=== PATIENT | female | born 1980 | race Caucasian/White ===

== ENCOUNTER 2020-05-05 14:32 | Outpatient (CLI) | payer BC, SELFPAY ==
--- NOTE | ~2020-05-05 | CT_ITS ---
EXAMINATION: CT abdomen pelvis wo con DATE: 05/05/2020 14:58 INDICATION: Hematuria. TECHNIQUE: Computed tomography (CT) of the abdomen and pelvis was performed without intravenous contr ast. Automated exposure control and iterative reconstruction technique were employed. The dose-length product was 196.53 mGy-cm. COMPARISON: None. FINDINGS: The visualized portions of the lung bases are clear without pneumonia or pleural effusion. The heart size is normal. No pericardial effusion. The liver, gallbladder, spleen, pancreas, adrenal glands, and kidneys are normal. There is a 4 mm stone at right ureterovesicular junction. There are n o dilated loops of bowel. The appendix is normal. There are no pathologically enlarged lymph nodes. T here is no free intraperitoneal fluid. There is mild lumbar spondylosis. IMPRESSION: 1. 4 mm stone at right ureterovesicular junction. No hydronephrosis. Reviewed, dictated and finalized at location A.
[2020-05-05 15:55] LABS: Basophils Percent Auto 0.3 % (0.2-1.2); Eosinophils Absolute Auto 0.4 K/mm3 (0-0.3); Eosinophils Percent Auto 4.4 % (0-4.4); Hematocrit 38.5 % (37.0-47.0); Hemoglobin 12.6 g/dL (12.0-15.0); Immature Granulocyte Absolute 0.02 K/mm3 (0.00-0.031); Immature Granulocyte Percent A 0.2 % (0-0.5); Lymphocytes Absolute Auto 2.91 K/mm3 (0.9-3.2); Lymphocytes Percent Auto 33.8 % (18.3-44.2); Mean Corpuscular HGB Conc 32.7 g/dl (32-36); Mean Corpuscular Volume 82.6 fl (80-100); Mean Platelet Volume 11.1 fl (7.4-10.4); Monocytes Absolute Auto 0.6 K/mm3 (0.1-0.6); Monocytes Percent Auto 6.6 % (2.6-8.5); Neutrophils Absolute Auto 4.7 K/mm3 (1.3-6.7); Neutrophils Percent Auto 54.7 % (45.5-73.1); Platelet Count Result 195 k/mm3 (150-375); Red Blood Count 4.66 M/mm3 (4.2-5.4); Red Cell Distribution Width 12.7 % (11.5-14.5); White Blood Count 8.6 K/mm3 (4.5-10.0)
[2020-05-05 16:09] LABS: Alanine Aminotransferase 17 U/L (4-35); Albumin Level 4.3 g/dL (3.5-5.1); Alkaline Phosphatase 74 U/L (38-126); Anion Gap 11.2 mmol/L (7-16); Aspartate Amino Transferase 23 U/L (14-36); Bilirubin,Total 0.2 mg/dL (0.2-1.3); Blood Urea Nitrogen 13 mg/dL (7-17); Carbon Dioxide 26 mmol/L (22-30); Chloride 105 mmol/L (98-107); Estimated Glomerular Filt Rate > 60; Glucose 93 mg/dL (65-105); Potassium 4.2 mmol/L (3.4-5.0); Sodium 138 mmol/L (137-145)
== END 2020-05-05 14:33 | disposition home or self-care (01) ==
PROVIDERS: PCP Family Medicine; Visit Provider Physician Assistant
DX: N20.1 Calculus of ureter (principal)
CPT/HCPCS: 36415; 74176; 80053; 85025

== ENCOUNTER 2023-01-13 14:57 | Outpatient (CLI) | payer OTHER, SELFPAY ==
--- NOTE | 2023-01-13 15:00 | ECG_ITS ---
Measurements Intervals [place] Rate: 74 P: 53 MD: 161 QRS: 16 QRSD: 82 T: 29 QT: 366 QTc: 407 Interpretive Statements SINUS RHYTHM POOR R-WAVE PROGRESSION BORDERLINE ECG NO PREVIOUS ECG AVAILABLE FOR COMPARISON Electronically Signed On 01-13-2023 17:10:10 CDT by Lawson Barrientos M.D.
== END 2023-01-13 14:58 | disposition home or self-care (01) ==
LOC: ANHSURGERY 15:02
PROVIDERS: PCP Family Medicine; Visit Provider Obstetrics & Gynecology Gynecologic Oncology
DX: I10 Essential (primary) hypertension (principal)
CPT/HCPCS: 93005

== ENCOUNTER 2023-01-14 00:40 | Day surgery (SDC) | payer OTHER, SELFPAY ==
[2023-01-10 15:10] VITALS: BMI 33.2
--- NOTE | 2023-01-10 15:14 | PC.NURSE ---
Report to the Outpatient Waiting Room, entrance under the green pavilion located off [facility], at time 6:00 on date 01/14/23. Planned Procedure Time: 8:00. Time changes happen often and if your time is changed the preop area will call you the afternoon before. - You and your visitor will be asked to self-screen and do not enter if you have any COVID symptoms. - A mask is optional within the hospital at this time. Patients may have clear liquids (water, carbonated beverages, clear teas, apple juice) until 3 hours prior to surgery (5:00) with a maximum of 20 ounces. - No food from midnight until time of surgery Take the following medications with a SIP of water the morning of surgery: METOPROLOL, TOPIRAMATE DO NOT STOP ANY OF YOUR OTHER PRESCRIPTION MEDICATIONS PRIOR TO SURGERY ?EXCEPT THE FOLLOWING Medications to discontinue per physician: N/A Date to take last dose: N/A Please no make-up, nail estonian, hairspray, perfume, deodorant, or body powder the day of surgery. No jewelry (including any body piercings) or valuables the day of surgery, leave them at home. Please take a shower or bath the night before, or the morning of, surgery with an antibacterial soap. Wear comfortable, loose fitting clothing. - Jewelry must be removed prior to entering the operating room. Rings and piercings that are not removed may be cut off. - The hospital will not accept responsibility for valuables. - Please leave all valuables, including medications, at home the day of surgery. If you are going home after surgery, a licensed automobile drivers must drive you home. - NO public transportation without another adult if you receive anesthesia. - We recommend that an adult stay with you for 24 hours following discharge. - We also recommend that you do not drive, make important decision, drink alcoholic beverages, or take any drugs that were not prescribed by your health care provider for at least 24 hours after your discharge time. Follow any additional instructions given to you from your surgeon. If you or anyone in your household have experienced Covid symptoms in the past week, please notify your surgeon or the nurse liaison at the phone number below for possible testing. Telephone instructions given to PT - JOSE EPPS and asked if any additional questions and then verbalized understanding. Patient advised to call surgeon office or pre surgery nurse liaison [phone] if any additional questions.
--- NOTE | 2023-01-13 11:40 | WPDANESEPPF ---
Anes - Initial Pre Proc Eval Procedure: Operation Date: 01/14/23 08:00 Proposed Procedures p Diagnostic Laparoscopy with Bilateral Salpingectomy - Mounika Peraza DO Date/Time: 01/13/23 11:40 Surgeon: Mounika Peraza DO Pre Op Diagnosis: Desires Surgical Sterility Patient Data Age: 42 Gender: F Height: 1.52 m Weight: 77.11 kg Allergies Allergy/AdvReac Type Severity Reaction Status Date / Time amoxicillin Allergy Intermediate Hives Verified 01/14/23 07:12 Home Medications Medication Instructions Recorded Confirmed Type topiramate 50 mg tablet (Topamax) 50 mg PO BID 90 days #180 tabs 12/19/22 01/14/23 Rx metoprolol succinate 50 mg 75 mg PO DAILY 01/10/23 01/14/23 History tablet,extended release 24 hr Patient hx anesthesia problems: none Family hx anesthesia problems: none Results Review: All pre-operative results and documents have been reviewed as part of the pre-operative evaluation. [facility] Past Medical History Medical History (Updated 01/13/23 @ 11:41 by Garrison Sherwood MD) Allergies Anxiety and depression Chronic nonintractable headache Essential hypertension Gastroesophageal reflux disease without esophagitis H/O renal calculi Headache, migraine Hematuria Hypertension Migraine Obesity Pseudotumor cerebri Urinary urgency Surgical History Surgical History Carpal tunnel syndrome 2014 delivery delivered 2006 2013 History of endometrial ablation aug 2020 Hx of LASIK Family History Family History Father Hypertension Testicle cancer Mother Family history of malignant melanoma Social History Social History Smoking status: Never smoker Second hand tobacco smoke exposure: No Alcohol intake: current Drinks per week: 1 Alcohol use details: beer Substance use: never Substance use type: does not use Living arrangements: with family Occupation/Education: occupation Additional occupation/education comments: [employer] Gender identity (if verbalized by the patient): Female Spiritual care concerns: No Agree to blood products: Yes Anes - Eval Final PreProcedure Day of Procedure 01/13/23 11:40 Patient weight: obese Heart: regular rate and rhythm Lungs: clear to auscultation and normal air movement Airway: Mallampati scale class II Neurological: alert and oriented Last oral intake: >/= 8 hours ASA classification: III Emergent: no Anesthetic plan: proceed Anesthesia type and monitoring: general ETT Results Review: All pre-operative results and documents have been reviewed as part of the pre-operative evaluation. Informed Consent: The patient's anesthetic plan and its attendant risks and benefits were discussed with the patient/family/POA. Questions were solicited and answers provided to the satisfaction of the patient/family/POA.
[2023-01-14] VITALS (9 sets, daily range): BP systolic 142–191; BP diastolic 95–120; PULSE 63–83; RESP 12–16; TEMP 36.4; O2SAT 98–100
[2023-01-14] MEDS: ACETAMINOPHEN 500 MG TABLET 1000 MG PO (07:21)
[2023-01-14] MEDS: GABAPENTIN 300 MG CAPSULE PO (07:21)
[2023-01-14] MEDS: LACTATED RINGERS 1,000 ML 30 ML IV CONT (07:29)
--- NOTE | 2023-01-14 07:44 | WPDHPUPDATE1 ---
History and Physical Update Update Date/Time: 01/14/23 07:44 History and Physical has been reviewed, including an updated exam of the patient. There are NO changes in the patient's condition. Risks, benefits, and alternatives have been discussed and questions answered. Patient agrees to proceed with procedure.
--- NOTE | 2023-01-14 07:44 | PM.IMHP ---
H&P: HPI History of Present Illness Date/Time: 01/14/23 07:44 Chief Complaint: I'm here for my surgery Narrative: I'm here for my surgery. patient here desiring permanent sterilization. Review of Systems Review of Systems: All systems reviewed & are unremarkable except as noted in HPI and below PMFSH Past Medical History Medical History (Updated 01/14/23 @ 07:47 by Mounika Peraza DO) Allergies Anxiety and depression Chronic nonintractable headache Essential hypertension Gastroesophageal reflux disease without esophagitis H/O renal calculi Headache, migraine Hematuria Hypertension Migraine Obesity Pseudotumor cerebri Urinary urgency Surgical History Surgical History Carpal tunnel syndrome 2014 delivery delivered 2006 2013 History of endometrial ablation aug 2020 Hx of LASIK Family History Family History Father Hypertension Testicle cancer Mother Family history of malignant melanoma Social History Social History Smoking status: Never smoker Second hand tobacco smoke exposure: No Alcohol intake: current Drinks per week: 1 Alcohol use details: beer Substance use: never Substance use type: does not use Living arrangements: with family Occupation/Education: occupation Additional occupation/education comments: [employer] Gender identity (if verbalized by the patient): Female Spiritual care concerns: No Agree to blood products: Yes Meds Home Medications and Allergies Home Medications Medication Instructions Recorded Confirmed Type topiramate 50 mg tablet (Topamax) 50 mg PO BID 90 days #180 tabs 12/19/22 01/14/23 Rx metoprolol succinate 50 mg 75 mg PO DAILY 01/10/23 01/14/23 History tablet,extended release 24 hr Allergies Allergy/AdvReac Type Severity Reaction Status Date / Time amoxicillin Allergy Intermediate Hives Verified 01/14/23 07:12 Vital Signs Vital Signs - 24 hr 01/14/23 06:24 Temperature 36.4 C L Pulse Rate 70 Respiratory Rate 16 Blood Pressure 142/99 H Pulse Oximetry 99 Oxygen Delivery Room Air Exam Const: General: comfortable and no acute distress Neck: Neck: supple Resp: Effort & Inspection: normal respiratory effort Auscultation: clear to auscultation bilaterally Cardio: Rate: regular rate Rhythm: regular rhythm Skin: General skin exam: normal color and no rashes or lesions noted Neuro: General: gait normal Extrem: General: normal to inspection Psych: Mental Status: mental status grossly normal Assessment and Plan Assessment and plan (1) Sterilization: Code(s): Z30.2 - Encounter for sterilization Status: Acute
--- NOTE | 2023-01-14 07:48 | WPDHPUPDATE1 ---
History and Physical Update Update Date/Time: 01/14/23 07:48 History and Physical has been reviewed, including an updated exam of the patient. There are NO changes in the patient's condition. Risks, benefits, and alternatives have been discussed and questions answered. Patient agrees to proceed with procedure.
[2023-01-14] MEDS: BUPIVACAINE/EPINEPHRINE 0.25% 10 ML VIAL 20 ML INFILTRATE (08:45)
--- NOTE | 2023-01-14 09:16 | P.OP_ITS ---
Procedure Note - Detailed Date of Procedure 01/14/23 Pre-op Diagnosis Desires permanent Sterility Post-op Diagnosis Same Procedure Performed Diagnostic laparoscopy, bilateral salpingectomy Surgeon Mounika Peraaz DO Staff Nurse Lisa Anesthesia General Indications Desires permanent sterilization Findings Normal appearing vulva and vaginal canal. Small cervix. Uterus sounded to 5cm. Internally, the liver bowels and stomach were unremarkable. The pelvic organs were normal in appearance. There were several paratubal cysts on both tubes. There was a moderate amount of omental tissue adhered to the anterior abdominal wall and the patient appeared to have a diastasis recti with a fat containing hernia. Description of Procedure Patient was taken to the operating room where she was placed under general anesthesia. She was prepped and draped in the normal sterile fashion in a dorsal lithotomy position. No preoperative antibiotics were indicated. A speculum was placed in the vagina and the cervix was visualized. The anterior lip was grasped with a single-tooth tenaculum and the uterus was sounded to 5 cm. The cervix was sequentially dilated up to accommodate a Kroner uterine manipulator. Once the manipulator was placed the tenaculum speculum removed, gloves were changed and attention was then turned to the abdomen. The skin above the umbilicus was grasped with 2 penetrating towel clamps and the area was injected with local. A small incision was made and a Veress needle was introduced. The saline water drop test was performed to confirm intraperitoneal placement. CO2 insufflation was started and the abdomen was brought to a filling pressure of 15 mmHg. The Veress needle was then replaced with a 5 mm Optiview trocar which was inserted under direct visualization. Survey of the abdomen revealed no evidence of bowel or vascular injury upon entry. Additional port sites in the right and left lower quadrants were identified, injected and incised. Additional 5 mm trocars were introduced under direct visualization. The patient was then placed in steep Trendelenburg position. Survey of the abdomen revealed the above-mentioned findings. The omental adhesions were then released using the LigaSure and the hernia was surveyed. The edge of the rectus muscle was made hemostatic with cautery. The right tube was then elevated and was cauterized and transected off using the LigaSure. The paratubal cysts were drained in order to allow the tube to pass through the purchasing administrative assistant port. The procedure was repeated in an identical fashion on the left-hand side and this tube was removed as well. Survey of the pedicles revealed good hemostasis. No abnormal lesions or suspicious areas were noted in the pelvis. The instruments and trocars were removed, the CO2 gas was allowed to escape from the abdomen. Additional local anesthetic was injected into the sites. The incisions were closed with 4-0 Monocryl in a subcuticular fashion and covered with skin glue. The patient was taken to the recovery room in stable condition. All instrument and sponge counts were correct at the conclusion of the procedure. Estimated Blood Loss 5 IV Fluids 1,000 Urine Output 150 Pathology Yes Complications No immediate complications Condition Stable Disposition PACU
[2023-01-14] MEDS: fentaNYL CITRATE INJ (*CRX) 100 MCG/2 ML VIAL 25 MCG IV PUSH ×2 (09:26→09:28)
[2023-01-14] MEDS: oxyCODONE HCL (*CRX) 5 MG TAB IR PO (10:11)
[2023-01-14] MEDS: hydrALAZINE HCL 20 MG/ML VIAL 10 MG IV PUSH (10:20)
--- NOTE | 2023-01-14 11:06 | SUR.PHASEII ---
1105: notified Dr. Sherwood of patients Blood pressure results post hydralazine administration. Dr. Sherwood stated that patient is okay to DC home.
== END 2023-01-14 11:20 | disposition home or self-care (01) ==
PROVIDERS: PCP Family Medicine; Visit Provider Obstetrics & Gynecology Gynecologic Oncology
PROC: (CPT 49320; principal; 2023-01-14 08:00)
DX: Z30.2 Encounter for sterilization (principal); N83.8 Other noninflammatory disorders of ovary, fallopian tube and broad ligament; I10 Essential (primary) hypertension; E66.9 Obesity, unspecified; Z68.32 Body mass index [BMI] 32.0-32.9, adult
CPT/HCPCS: 58661; 88302; 93005; A9270; J0330; J0360; J1100; J2250; J2405; J2704; J3010; J7030; J7120

== ENCOUNTER 2023-08-22 11:06 | Emergency (ER) | payer OTHER, SELFPAY ==
[2023-08-22 11:15] VITALS: BP 185/115; PULSE 70; RESP 18; TEMP 36; O2SAT 100
--- NOTE | 2023-08-22 11:16 | ED.CHESTPAIN ---
HPI - Chest Pain General Chief Complaint: Chest Pain Stated Complaint: High Blood Pressure and Chest Pain Time Seen by Provider: 08/22/23 11:16 Source: patient Mode of arrival: ambulatory Limitations: no limitations History of Present Illness HPI narrative: 43-year-old female with history hypertension presents complaint chest tightness radiating from back to front of chest, left-sided chest pain with deep breaths, shortness of breath with exertion starting last night. Patient reports she has had headaches, fatigue and overall not feeling well all week. Denies URI symptoms. Saw her primary care physician approximately 1 month ago and blood pressure was elevated. Was told to buy a blood pressure machine and check at. States past month blood pressure has been slowly elevating. Called her primary for an appointment and is not able to see her until mid September. Denies nausea vomiting. Ambulatory with steady gait. Denies lightheadedness. BP this AM at home 197/115. States last night machine said irregular heart beat . All Systems reviewed and negative except as noted above. Related Data Allergies Allergy/AdvReac Type Severity Reaction Status Date / Time amoxicillin AdvReac Mild Hives Verified 08/22/23 11:14 Review of Systems Review of Systems: CONSTITUTIONAL: Denies fever, chills, or sweats. reports fatigue. EYES: Denies visual changes, redness, or discharge. ENT: Denies rhinorrhea, congestion, sore throat, or otalgia. CARDIOVASCULAR: reports chest pain. Denies palpitations, or edema. RESPIRATORY: Denies cough . Reports dyspnea with exertion. GASTROINTESTINAL: Denies abdominal pain, nausea, vomiting, or diarrhea. GENITOURINARY: Denies dysuria or hematuria. SKIN: Denies rash or itching. MUSCULOSKELETAL: Denies back pain, joint pain, or myalgia. NEUROLOGIC: Reports headache. Denies numbness, or weakness. PSYCHIATRIC: Denies anxiety or depression. All other systems reviewed are negative, except as documented in HPI. [facility] Past Medical History Medical History ) Allergies Anxiety and depression Chronic nonintractable headache Essential hypertension Gastroesophageal reflux disease without esophagitis H/O renal calculi Headache, migraine Hematuria Hypertension Migraine Obesity Pseudotumor cerebri Urinary urgency Surgical History Surgical History ) Carpal tunnel syndrome 2014 delivery delivered 2006 2013 History of endometrial ablation aug 2020 Hx of bilateral salpingectomy (01/14/23) Hx of LASIK Family History Family History ) Father Hypertension Testicle cancer Mother Family history of malignant melanoma Social History Social History ) Smoking status: Never smoker Second hand tobacco smoke exposure: No Alcohol intake: current Drinks per week: 1 Alcohol use details: beer Substance use: never Substance use type: does not use Living arrangements: with family Occupation/Education: occupation Additional occupation/education comments: [employer] Gender identity (if verbalized by the patient): Female Spiritual care concerns: No Agree to blood products: Yes Comments At time of signature, agree with nursing past medical, surgical, social and family history. There is no relevant family history pertinent to the presenting complaint. Exam Narrative: GENERAL: This is a well-nourished, well-developed patient, in no apparent distress. HEAD: normocephalic, atraumatic. EYES: PERRL. Sclera clear/white. Vision is grossly intact. EARS: External ears normal NOSE: External nose normal NECK: Neck supple, non-tender without lymphadenopathy, masses or thyromegaly. CARDIOVASCULAR: Regular rate and rhythm without murmurs, gallops, or rubs. RESPIRAT
--- NOTE | 2023-08-22 11:17 | ECG_ITS ---
Measurements Intervals [place] Rate: 70 P: 62 NV: 160 QRS: 28 QRSD: 85 T: 26 QT: 370 QTc: 401 Interpretive Statements SINUS RHYTHM DELAYED PRECORDIAL R/S TRANSITION CONSIDER INFERIOR INFARCT, AGE INDETERMINATE BASELINE ARTIFACT- I, II, III, AVR, AVL, AVF, V4-V6 ABNORMAL ECG COMPARED TO ECG 01/13/2023 15:16:19 NO SIGNIFICANT CHANGES Electronically Signed On 08-22-2023 11:42:57 RENT AND MISCELLANEOUS REMITTANCE CLERK by Joel Hernandez D.O.
== END 2023-08-22 11:46 | disposition short-term general hospital (02) ==
PROVIDERS: Emergency Provider Nurse Practitioner Family; PCP Family Medicine
DX: I10 Essential (primary) hypertension (principal); R07.9 Chest pain, unspecified; R94.31 Abnormal electrocardiogram [ECG] [EKG]; Z20.822 Contact with and (suspected) exposure to COVID-19; K21.9 Gastro-esophageal reflux disease without esophagitis; E66.9 Obesity, unspecified; Z68.34 Body mass index [BMI] 34.0-34.9, adult
CPT/HCPCS: 87426; 93005; 99213; C9803; G0463

== ENCOUNTER 2023-08-22 12:01 | Emergency (ER) | payer OTHER, SELFPAY ==
[2023-08-22] VITALS (9 sets, daily range): BP systolic 141–186; BP diastolic 88–128; PULSE 63–77; RESP 13–20; TEMP 36.1–36.7; O2SAT 99–100
--- NOTE | ~2023-08-22 | XR_ITS ---
EXAMINATION: XR chest 2V DATE: 08/22/2023 12:47 INDICATION: Chest pain. Dizziness. TECHNIQUE: Frontal and lateral views of the chest were obtained. COMPARISON: Chest 2 views 07/14/2010 FINDINGS: There is no pneumonia, pleural effusion, or pneumothorax. The heart size is normal. IMPRESSION: 1. No acute cardiopulmonary disease. Reviewed, dictated and finalized at location A. R CHECKER PACKER PROCESSER
--- NOTE | 2023-08-22 12:13 | ECG_ITS ---
Measurements Intervals [place] Rate: 69 P: 41 UT: 162 QRS: 16 QRSD: 90 T: 27 QT: 369 QTc: 396 Interpretive Statements SINUS RHYTHM BORDERLINE R WAVE PROGRESSION, ANTERIOR LEADS CONSIDER INFERIOR INFARCT, AGE INDETERMINATE ABNORMAL ECG COMPARED TO ECG 08/22/2023 11:21:46 NO SIGNIFICANT CHANGES Electronically Signed On 08-22-2023 12:33:45 BACK SHOE CUTTER by Joel Hernandez D.O.
[2023-08-22 12:36] LABS: Basophils Percent Auto 0.5 % (0.2-1.2); Eosinophils Absolute Auto 0.3 K/mm3 (0-0.3); Eosinophils Percent Auto 3.1 % (0-4.4); Hematocrit 43.3 % (37.0-47.0); Hemoglobin 13.8 g/dL (12.0-15.0); Immature Granulocyte Absolute 0.02 K/mm3 (0.00-0.031); Immature Granulocyte Percent A 0.2 % (0-0.5); Lymphocytes Absolute Auto 2.75 K/mm3 (0.9-3.2); Lymphocytes Percent Auto 31.6 % (18.3-44.2); Mean Corpuscular HGB Conc 31.9 g/dl (32-36); Mean Corpuscular Hemoglobin 27.1 pg (26-34); Mean Corpuscular Volume 85.1 fl (80-100); Mean Platelet Volume 10.7 fl (7.4-10.4); Monocytes Absolute Auto 0.5 K/mm3 (0.1-0.6); Monocytes Percent Auto 5.9 % (2.6-8.5); Neutrophils Absolute Auto 5.1 K/mm3 (1.3-6.7); Neutrophils Percent Auto 58.7 % (45.5-73.1); Platelet Count Result 187 k/mm3 (150-375); Red Blood Count 5.09 M/mm3 (4.2-5.4); Red Cell Distribution Width 13.2 % (11.5-14.5); White Blood Count 8.7 K/mm3 (4.5-10.0)
[2023-08-22 12:46] LABS: Alanine Aminotransferase 18 U/L (6-35); Albumin Level 4.5 g/dL (3.5-5.1); Alkaline Phosphatase 92 U/L (38-126); Anion Gap 11 mmol/L (8-16); Aspartate Amino Transferase 22 U/L (14-36); Bilirubin,Total 0.6 mg/dL (0.2-1.3); Blood Urea Nitrogen 14 mg/dL (7-17); Calcium 9.5 mg/dL (8.4-10.2); Carbon Dioxide 23 mmol/L (22-30); Chloride 105 mmol/L (98-107); Estimated CRCL calculation 75 ml/min; Estimated Glomerular Filt Rate > 60; Glucose 94 mg/dL (65-110); INR 0.9; Lipase 288 U/L (23-300); Potassium 3.9 mmol/L (3.4-5.0); Sodium 139 mmol/L (137-145)
[2023-08-22 12:48] LABS: Partial Thromboplastin Time 25.7 SECONDS (22.3-36.8)
[2023-08-22 12:57] LABS: Troponin I < 0.012 ng/mL (0.000-0.034)
--- NOTE | 2023-08-22 15:16 | PC.NURSE ---
2 unsuccessful IV attempts, vascular access called for SLN placement
[2023-08-22] MEDS: hydroCHLOROthiazide 25 MG TABLET PO (15:40)
--- NOTE | 2023-08-22 15:45 | PC.NURSE ---
Pt reports she does not want to wait for 2nd troponin and signed AMA papers. Pt aware of risks vs benefits of leaving. ERP notified
--- NOTE | 2023-08-22 16:32 | ED.CHESTPAIN ---
HPI - Chest Pain General Chief Complaint: Chest Pain Stated Complaint: chest pain/htn Time Seen by Provider: 08/22/23 13:52 Source: patient Mode of arrival: ambulatory Limitations: no limitations History of Present Illness HPI narrative: 43-year-old female sent here from urgent care with complaints of not feeling right, chest pressure, hypertension. Patient has a history of hypertension has been on metoprolol succinate 75 for years. States she saw her primary care provider last month and they discussed possibly increasing or adding on a medication but she is supposed to monitor her blood pressure at home. The patient had not really been monitoring him but got a new cough in the last week it was elevated in today was 190s over 1 teens and she is unable to make an appointment with her care primary care provider and tele about 3 weeks from now. Patient arrived to the urgent care where she was evaluated and transferred to our ER via private vehicle. Upon arrival to our facility patient denied any chest pain at this time but stated that she just did not feel right and has not felt right. Denies any shortness of breath, sweating, dizziness. Related Data Allergies Allergy/AdvReac Type Severity Reaction Status Date / Time amoxicillin AdvReac Mild Hives Verified 08/22/23 11:14 Review of Systems Review of Systems: All systems reviewed & are unremarkable except as noted in HPI and below PMFSH Past Medical History Medical History Allergies Anxiety and depression Chronic nonintractable headache Essential hypertension Gastroesophageal reflux disease without esophagitis H/O renal calculi Headache, migraine Hematuria Hypertension Migraine Obesity Pseudotumor cerebri Urinary urgency Surgical History Surgical History ) Carpal tunnel syndrome 2013 delivery delivered 2006 2013 History of endometrial ablation aug 2020 Hx of bilateral salpingectomy (01/14/23) Hx of LASIK Family History Family History ) Father Hypertension Testicle cancer Mother Family history of malignant melanoma Social History Social History ) Smoking status: Never smoker Second hand tobacco smoke exposure: No Alcohol intake: current Drinks per week: 1 Alcohol use details: beer Substance use: never Substance use type: does not use Living arrangements: with family Occupation/Education: occupation Additional occupation/education comments: [employer] Gender identity (if verbalized by the patient): Female Spiritual care concerns: No Agree to blood products: Yes Exam Const: General: cooperative, healthy appearing, comfortable, no acute distress and well developed Orientation/consciousness: patient oriented x3 HENMT: Head: normal to inspection Eyes: General: appearance normal, both eyes and all related structures Resp: Effort & Inspection: normal respiratory effort and able to speak in complete sentences Auscultation: clear to auscultation bilaterally Cardio: Rate: regular rate Rhythm: regular rhythm Heart sounds: S1 normal heart sound present and S2 normal heart sound present Neuro: General: patient oriented x3 and CN's II-XI intact bilaterally Cranial nerves: Yes Nystagmus not present Course Vital Signs Vital signs: Vital Signs Temperature 96.9 F L 08/22/23 12:03 Pulse Rate 66 08/22/23 12:03 Respiratory Rate 18 08/22/23 12:03 Blood Pressure 186/114 H 08/22/23 12:03 Pulse Oximetry 99 08/22/23 12:03 Oxygen Delivery Room Air 08/22/23 12:03 Temperature 98.0 F 08/22/23 15:46 Pulse Rate 73 08/22/23 15:31 Respiratory Rate 15 08/22/23 15:31 Blood Pressure 141/97 H 08/22/23 15:31 Pulse Oximetry 100 08/22/23 15:31 Oxygen Delivery Room Air 08/22/23 1
== END 2023-08-22 15:48 | disposition left against medical advice (07) ==
PROVIDERS: Emergency Medicine; Emergency Provider Nurse Practitioner Family; PCP Family Medicine
DX: I10 Essential (primary) hypertension (principal); R07.9 Chest pain, unspecified
CPT/HCPCS: 36415; 71046; 80053; 83690; 84484; 85025; 85610; 85730; 87426; 93005; 99284; A9270; C9803

== ENCOUNTER 2023-09-23 15:09 | Emergency (ER) | payer OTHER, SELFPAY ==
[2023-09-23 15:31] VITALS: BP 138/95; PULSE 72; RESP 16; TEMP 35.8; O2SAT 99
--- NOTE | 2023-09-23 15:36 | ED.URI ---
HPI - URI/Sore Throat General Chief Complaint: Upper Respiratory Infection Stated Complaint: cough,sorethroat Time Seen by Provider: 09/23/23 15:36 Source: patient and RN notes reviewed Mode of arrival: ambulatory Limitations: no limitations History of Present Illness HPI Narrative: 43-year-old female presents concern for cough, sore throat, fatigue. She reports symptoms started on Friday. She reports she felt worse on Friday and Friday. She reports she has been taking [id number] cold medicine. MD elicited complaint: cough Related Data Allergies Allergy/AdvReac Type Severity Reaction Status Date / Time amoxicillin AdvReac Mild Hives Verified 09/23/23 15:23 Review of Systems Review of Systems: CONSTITUTIONAL: Reports malaise, fatigue. Denies chills, sweats, or fever. EYES: Denies visual changes, redness, or discharge. ENT: Reports congestion, sore throat. CARDIOVASCULAR: Denies chest pain, palpitations, or edema. RESPIRATORY: Reports cough. Denies dyspnea. GASTROINTESTINAL: Denies abdominal pain, nausea, vomiting, diarrhea SKIN: Denies rash or itching. MUSCULOSKELETAL: Denies myalgia. NEUROLOGIC: Denies headache. All systems reviewed & are unremarkable except as noted in HPI and below PMFSH Past Medical History Medical History (Updated 09/23/23 @ 15:54 by Ana Blackwell NP) Allergies Anxiety and depression Chronic nonintractable headache Essential hypertension Gastroesophageal reflux disease without esophagitis H/O renal calculi Headache, migraine Hematuria Hospital discharge follow-up Hypertension Migraine Obesity Pseudotumor cerebri Urinary urgency Surgical History Surgical History Carpal tunnel syndrome 2014 delivery delivered 2006 2013 History of endometrial ablation aug 2020 Hx of bilateral salpingectomy (01/14/23) Hx of LASIK Family History Family History Father Hypertension Testicle cancer Mother Family history of malignant melanoma Social History Social History (Updated 08/26/23 @ 09:28 by Shasha Miller CMA) Smoking status: Never smoker Second hand tobacco smoke exposure: No Alcohol intake: current Drinks per week: 1 Alcohol use details: beer Substance use: never Substance use type: does not use Lack of Transportation: No Lack of Food: Never True Current Housing: I Have Housing Concerned About Future Housing: No Difficulty Paying Gas/Electric Bills: No Difficulty Paying for Meds: No Currently Unemployed: No Education: Don't Know Difficulty w/ Childcare or Family Care: No Living arrangements: with family Occupation/Education: occupation Additional occupation/education comments: [employer] Gender identity (if verbalized by the patient): Female Spiritual care concerns: No Agree to blood products: Yes Comments At time of signature, agree with nursing past medical, surgical, social and family history. There is no relevant family history pertinent to the presenting complaint Exam Narrative: GENERAL: Well-appearing, well-nourished, and in no acute distress. HEAD: Normocephalic EYES: PERRLA, conjunctivae clear ENT: Nares clear. Mucous membranes moist. TM pearly chairez with sharp light reflex bilaterally; no tragal tenderness. Oropharynx not erythematous without lesions. Tonsils not enlarged and without exudate, no drooling, no hoarseness, no trismus, uvula midline. NECK: Supple. No lymphadenopathy CHEST: Clear to auscultation, breath sounds equal. No wheezing, rhonchi, rales, or stridor. No respiratory distress, speaks in full sentences. HEART: Regular rate and rhythm. No murmur heard. SKIN: Warm, dry, no rash. NEURO: Alert and oriented x3. PSYCH: Normal mood and affect Course Course Emergency Course: Patient is aware of diagnosis, understands and agrees to treatment plan. Anticipatory gu
== END 2023-09-23 16:00 | disposition home or self-care (01) ==
PROVIDERS: Emergency Provider Nurse Practitioner; PCP Family Medicine
DX: J06.9 Acute upper respiratory infection, unspecified (principal); I10 Essential (primary) hypertension; Z20.822 Contact with and (suspected) exposure to COVID-19
CPT/HCPCS: 87081; 87426; 87804; 87880; 99213; C9803; G0463